=== PATIENT | female | born 1975 | race Caucasian/White ===

== ENCOUNTER → 2023-03-20 00:47 | Outpatient (CLI) | payer OTHER, SELFPAY ==
--- NOTE | 2023-03-20 06:00 | DI.MRI_ITS ---
Exam(s) MR UPPER JOINT LT WO EXAM: MR UPPER JOINT LT WO CLINICAL HISTORY: ? RTC TEAR,calcific tendonitis lt shoulder, m75.32. TECHNIQUE: Multiplanar multisequence MRI was performed. COMPARISON: DX Shoulder LT from 08/25/2022 FINDINGS: BONES: There is no fracture or contusion pattern. There is a small focus of marrow edema in the super ior aspect of the humeral head. JOINTS: The acromioclavicular joint is normal. The glenohumeral joint is normal. TENDONS: Supraspinatus: Unremarkable. Infraspinatus: There is hyperintense signal seen in the anterior aspect of the infraspinatus tendon s uspicious for partial tear. Subscapularis: Unremarkable. Teres Minor: Unremarkable. Biceps and [place]: Unremarkable. MUSCLES: Unremarkable. GLENOID LABRUM: Unremarkable on this noncontrast examination. SOFT TISSUES: Unremarkable. LIGAMENTS: Unremarkable. OTHER: There is a small amount of fluid in the subacromial subdeltoid bursa. IMPRESSION: Small partial intrasubstance tear of the infraspinatus tendon. DATA REPOSITORY:
== END ==
PROVIDERS: Visit Provider Student in an Organized Health Care Education/Training Program
DX: M75.112 Incomplete rotator cuff tear or rupture of left shoulder, not specified as traumatic (principal); M75.32 Calcific tendinitis of left shoulder
CPT/HCPCS: 73221

== ENCOUNTER 2023-03-26 08:58 | Outpatient (CLI) | payer OTHER, SELFPAY ==
--- NOTE | 2023-03-26 08:45 | DI.RAD_ITS ---
Exam(s) XR SHOULDER LT COMPLETE 2+V EXAM: XR SHOULDER LT COMPLETE 2+V CLINICAL HISTORY: LEFT SHOULDER PAIN. TECHNIQUE: 2D digital imaging was performed. Three views. COMPARISON: DX Shoulder LT from 08/25/2022 FINDINGS: BONES: No acute fracture is present. No bony destructive lesion is seen. JOINTS: No dislocation present. No significant degenerative changes. SOFT TISSUE: Normal. The previously noted calcifications above the humeral head are no longer seen. IMPRESSION: Unremarkable radiographs of the left shoulder. DATA REPOSITORY: RADIATION DOSE DELIVERED:
== END 2023-03-26 08:59 | disposition home or self-care (01) ==
LOC: DIORS 08:58
PROVIDERS: Visit Provider Student in an Organized Health Care Education/Training Program
DX: M25.512 Pain in left shoulder (principal)
CPT/HCPCS: 73030

== ENCOUNTER 2023-07-09 09:13 | Outpatient (CLI) | payer OTHER, SELFPAY ==
--- NOTE | 2023-07-09 09:00 | DI.RAD_ITS ---
Exam(s) XR SHOULDER LT COMPLETE 2+V EXAM: XR SHOULDER LT COMPLETE 2+V CLINICAL HISTORY: LEFT SHOULDER PAIN. TECHNIQUE: 2D digital imaging was performed of the left shoulder. Two images were obtained. [place] y and Y views were obtained. COMPARISON: CR XR SHOULDER LT COMPLETE 2+V from 03/26/2023 FINDINGS: BONES: No acute fracture is present. No bony destructive lesion is seen. JOINTS: No dislocation present. The glenohumeral and acromioclavicular joints are well maintained. SOFT TISSUE: Normal. IMPRESSION: Unremarkable radiographs of the left shoulder. DATA REPOSITORY: RADIATION DOSE DELIVERED:
== END 2023-07-09 09:14 | disposition home or self-care (01) ==
LOC: DIORS 09:13
PROVIDERS: Visit Provider Student in an Organized Health Care Education/Training Program
DX: M75.32 Calcific tendinitis of left shoulder (principal)
CPT/HCPCS: 73030

== ENCOUNTER 2023-09-22 03:26 | Emergency (ER) | payer SELFPAY ==
[2023-09-22 03:32] VITALS: BP 131/98; PULSE 121; RESP 18; TEMP 36.8; O2SAT 100
[2023-09-22] MEDS: methylPREDNISolone SUCC 125 MG VIAL IM (03:50)
[2023-09-22] MEDS: Loratidine 10 MG TAB 20 MG PO (03:50)
--- NOTE | 2023-09-22 04:38 | W.ED.GENAD ---
HPI General Date/Time Provider Initiated Documentation: 09/22/23 03:40. 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 She immediately took 50 mg of Benadryl however the symptoms persisted, she then transitioned to one of our rooms for further evaluation. She does admit to a small amount of unease in her stomach, but no diarrhea or vomiting. She denies any headache or neck pain. No shortness of breath. She has never had anaphylaxis before. No other complaints at this time. No other modifying factors. Related Data Home Medications Medication Instructions Recorded Confirmed alprazolam 0.5 mg tablet (Xanax) 0.5 mg PO QHS PRN 03/04/23 09/22/23 alprazolam 1 mg tablet,extended 1 mg PO DAILY 03/04/23 09/22/23 release 24 hr (Xanax XR) lamotrigine 100 mg tablet 50 mg PO DAILY 03/04/23 09/22/23 (Lamictal) paroxetine HCl 30 mg tablet (Paxil) 30 mg PO BID 03/04/23 09/22/23 prazosin 2 mg capsule 2 mg PO QHS 03/04/23 09/22/23 quetiapine 50 mg tablet 50 mg PO DAILY 03/04/23 09/22/23 prednisone 50 mg tablet 50 mg PO DAILY #5 tabs 09/22/23 Previous Rx's Medication Instructions Recorded prednisone 50 mg tablet 50 mg PO DAILY #5 tabs 09/22/23 Allergies Allergy/AdvReac Type Severity Reaction Status Date / Time hydromorphone [From Dilaudid] Allergy Intermediate Hives Verified 09/22/23 03:41 General Stated Complaint: Allergic NOEMY: 3 Review of Systems All systems reviewed & are unremarkable except as noted in HPI and below Exam Narrative Exam Narrative: 1.Const: Well-nourished, Well-developed, appearing stated age 2.Eyes: PERRL, no conjunctival injection, and symmetrical lids. 3.ENT: Atraumatic external nose and ears. Moist MM. Neck: Symmetric, trachea midline, No thyromegaly. Mild swelling of the posterior uvula. Tonsils are unremarkable. No signs of airway compromise. No wheezing or stridor. 4.CVS: +S1/S2, No murmurs or gallops. Peripheral pulses 2+ and equal in all extremities. Brisk capillary refill in all extremities. 5.RESP: Unlabored respiratory effort. Clear to auscultation bilaterally. No wheezes rales or rhonchi 6.GI: Soft, Nontender/Nondistended, No hepatosplenomegaly. No guarding or rebound. 7.MSK: Normocephalic/Atraumatic, Extremities w/o deformity or ttp No cyanosis or clubbing, Normal movement of all extremities 8.Skin: Warm, Dry. No rashes or lesions. 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 Sensation grossly intact, no focal neurologic deficits. 10.Psych: (AAO) x3. Appropriate mood and affect Course Vital Signs Vital signs: Vital Signs Temperature 36.8 C 09/22/23 03:32 Pulse 121 H 09/22/23 03:32 Respiratory Rate 18 09/22/23 03:32 Blood Pressure 131/98 H 09/22/23 03:32 Pulse Oximetry 100 09/22/23 03:32 Temperature 36.8 C 09/22/23 03:32 Temperature Source Temporal Artery Scan 09/22/23 03:32 Pulse 121 H 09/22/23 03:32 Respiratory Rate 18 09/22/23 03:32 Respiratory Effort Normal, Non-Labored 09/22/23 03:39 Respiratory Pattern Normal 09/22/23 03:39 Blood Pressure 131/98 H 09/22/23 03:32 Blood Pressure Position Supine 09/22/23 03:32 Pulse Oximetry 100 09/22/23 03:32 Oxygen Delivery Method Room Air 09/22/23 03:32 Oxygen Flow Rate 0 09/22/23 03:32 Medical Decision Making 48-year-old female with past medical history of allergy to Dilaudid which brings about hives, and 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 She immediately took 50 mg of Benadryl however the symptoms persisted, she then transitioned to one of our rooms for further evaluation. She does admit to a small amount of unease in her stomach, but no diarrhea or vomiting. She denies any headache or neck pain. No shortness of breath. She has never had anaphylaxis before. No other complaints at this time. No other modifying factors. Physical exam demonstrates well-appearing female, slightly tachycardic. Mild swelling of the uvula and the posterior oropharynx. No signs of angioedema. No significant rash. Lungs are clear. No vomiting or diarrhea to suggest anaphylaxis. Patient has a notable subjective sensation of her throat getting tight/closing, but no stridor is visibly or auditory evident. Concern for food reaction secondary to the [place] fruit intake. Patient already took 50 mg of Benadryl. We will give 10 mg of loratadine and 125 mg of Solu-Medrol IM. Will monitor closely and reassess. No indication for epinephrine at this time. 5 AM Patient has resolution of the swelling in the uvula, she no longer feels that her throat is tight. She feels much better. The patient's lung sounds remain clear. No signs of airway compromise whatsoever. No evidence of anaphylaxis. No indication for epinephrine. No signs of significant allergic reaction. At this time patient is notably stable, appropriate for discharge. Will give short 5-day prednisone burst, recommend loratadine 10 mg daily and 25 mg Benadryl as needed. Discussed red flags for which to return. I have extensively reviewed the treatment plan and discharge instructions with the patient. I have addressed all patient concerns at this time. The patient was made aware of what symptoms to monitor for that would warrant a return to the emergency department. Discussed the plan with the patient, they demonstrate verbal understanding and agreement with our assessment and plan at this time. The documentation in this chart was dictated using [employer] dictation software. Please excuse any dictation errors. Quality:SDOH Health Related Social Needs: No Data to Display PFSH All Active Problems Allergic reaction (Acute) Bursitis of shoulder, left (Acute) Tendinopathy of left biceps tendon (Acute) Calcific tendinitis of left shoulder (Acute) Left rotator cuff tear (Acute) Social History Smoking/Tobacco Use Status: Never Smoking risk assessment performed?: Yes Alcohol Intake: current Drug use: Never Substance use type: does not use Current gender identity: female Discharge Plan Disposition Patient Disposition: Home Condition: Good Discharge Details Clinical Impression: Allergic reaction Primary Care Provider: None,None ED Provider: Eric Peres Meds and New Rx's Prescriptions: New prednisone 50 mg tablet 50 mg PO DAILY Qty: 5 0RF No Action paroxetine HCl [Paxil] 30 mg tablet 30 mg PO BID lamotrigine [Lamictal] 100 mg tablet 50 mg PO DAILY quetiapine 50 mg tablet 50 mg PO DAILY alprazolam [Xanax XR] 1 mg tablet extended release 24 hr 1 mg PO DAILY alprazolam [Xanax] 0.5 mg tablet 0.5 mg PO QHS PRN prazosin 2 mg capsule 2 mg PO QHS Discharge Instructions Instructions: General Allergic Reaction (ED) Additional Instructions: At this time your allergic reaction has seemed to stabilize. Please continue to take 10 mg of loratadine every 24 hours for the next 3 to 5 days. Please take the prednisone as directed. You can take an additional 25 mg of Benadryl every 6 hours as needed. Please continue to avoid [place] fruit in the future. If you notice any worsening of your symptoms, or any new symptoms such as vomiting, diarrhea, fever, chills, shortness of breath, chest pain, numbness, weakness, or fainting , please return immediately to the emergency department for reevaluation. Please follow up with your primary care provider as soon as possible for reassessment and reevaluation. As always, it was a pleasure participating in your medical care today.
== END 2023-09-22 09:58 | disposition home or self-care (01) ==
PROVIDERS: Emergency Provider Student in an Organized Health Care Education/Training Program
DX: T78.1XXA Other adverse food reactions, not elsewhere classified, initial encounter (principal); L29.9 Pruritus, unspecified; X58.XXXA Exposure to other specified factors, initial encounter
CPT/HCPCS: 96372; 99283; J2930